=== PATIENT | male | born 2000 | race Caucasian/White ===

== ENCOUNTER 2021-06-18 16:51 | Emergency (ER) | payer OTHER ==
[~2021-06-18] VITALS: Ht 162.6 cm; Wt 102.5 kg
[2021-06-18 17:04] VITALS: BP 135/66
--- NOTE | 2021-06-18 17:15 | NUR ---
DR KULKARNI AT BEDSIDE.
--- NOTE | 2021-06-18 17:32 | NUR ---
21/M PRESENTS TO ED WITH C/O TINGLING FROM FINGERS TO HANDS, STATES HE HAS BEEN EXPERIENCING NUMBNESS AT NIGHT AND WAKES UP WITH PAIN. PATIENT REPORTS HE HAS BEEN USING PAIN RELIEVERS WITH MILD RELIEF. DENIES RECENT INJURY OR TRAUMA.
--- NOTE | 2021-06-18 18:01 | NUR ---
Patient discharged with v/s stable. Written and verbal after care instructions given and explained. Patient verbalized understanding. Ambulatory with steady gait. All questions addressed prior to discharge. Advised to follow up with PMD.
--- NOTE | 2021-06-18 18:02 | NUR ---
The patient's care was reviewed and supervised by Naomi Camargo RN.
== END 2021-06-18 17:24 | disposition home or self-care (01) ==
LOC: MED 16:51
DX: R20.0 Anesthesia of skin (principal); G56.03 Carpal tunnel syndrome, bilateral upper limbs
CPT/HCPCS: 99281

== ENCOUNTER 2022-08-25 21:27 | Emergency (ER) | payer MEDICAID, OTHER ==
[~2022-08-25] VITALS: Ht 167.6 cm; Wt 81.6 kg
[2022-08-25 21:35] VITALS: BP 119/82
--- NOTE | 2022-08-25 21:38 | NUR ---
TO LOBBY A/W BED AMBULATORY
--- NOTE | 2022-08-25 23:23 | NUR ---
PT AMBULATED TO BED
[2022-08-25] MEDS ORDERED: FLUORESCEIN OPTH STRIP 1 MG OP ONE (23:30)
[2022-08-25] MEDS ORDERED: TETRACAINE HCL/PF 0.5% OPTH 4 ML BTL OP ONE (23:30)
--- NOTE | 2022-08-25 23:30 | NUR ---
22 Y/O M presents with L eye discomfort due to bleach splashing in it while at work around 1830. pt stated he is having a headache but denies pain, more so discomfort. pt stated he flushed his eye for 15min after incident with some relief. pt stated he went to urgent care, and urgent care told him to go to the ER. Mom is bedside, parents stated pt is mentally disabled and prefers to have parents while being seen. pt is A&Ox4, skin intact, ambulatory without assistance, respirations even and unlabored PMH- pt and mom denies NKA
[2022-08-26] MEDS ORDERED: TOBR5SOL38 LEFT EYE (00:23)
[2022-08-26 00:31] VITALS: BP 119/82
--- NOTE | 2022-08-26 00:31 | NUR ---
Patient discharged with v/s stable. Written and verbal after care instructions given and explained. Patient alert, oriented and verbalized understanding of instructions. Ambulatory with by parent. All questions addressed prior to discharge. ID band removed. Patient advised to follow up with PMD. Rx of TOBRAMYCIN given. Patient educated on indication of medication including possible reaction and side effects. Opportunity to ask questions provided and answered.
== END 2022-08-26 00:31 | disposition home or self-care (01) ==
LOC: MED 21:27
DX: H10.212 Acute toxic conjunctivitis, left eye (principal)
CPT/HCPCS: 99283